=== PATIENT | female | born 1975 | race African-American/Black ===

== ENCOUNTER 2018-03-13 00:59 | Emergency (ER) | payer SELFPAY ==
[~2018-03-13] VITALS: Ht 175.3 cm; Wt 81.6 kg
[2018-03-13 01:05] VITALS: BP 0/0
--- NOTE | 2018-03-13 01:09 | Emergency Room Report ---
History of Present Illness General Chief Complaint: Substance Abuse Source: Patient, EMS Present Illness HPI Is a 42-year-old female who is brought in by EMS with chief complaint of methamphetamine overdose. She was acting bizarrely at so bystander called 911. On arrival patient is combative but follow commands. She admits to using methamphetamine. Did not pass out. No injury. She does not want to be here. Does not want to be seen even though initially she agreed to it. Denies suicidal thoughts or homicidal thought. Allergies: Coded Allergies: No Known Allergies (Unverified , 03/13/18) Patient History Past Medical History: see triage record, old chart reviewed Past Surgical History: none Pertinent Family History: none Social History: Reports: drug use - amphetamine Last Menstrual Period: ukn Now: No Immunizations: other Reviewed Nursing Documentation: PMH: Agreed; PSxH: Agreed Nursing Documentation-PMH Past Medical History: No Stated History Review of Systems Eye: Denies: eye pain, blurred vision ENT: Denies: ear pain, nose congestion, throat swelling Respiratory: Denies: cough, shortness of breath Cardiovascular: Denies: chest pain, palpitations Gastrointestinal: Denies: abdominal pain, diarrhea, nausea, vomiting Musculoskeletal: Denies: back pain, joint pain Skin: Denies: rash Neurological: Denies: headache, numbness Endocrine: Denies: increased thirst, increased urine Hematologic/Lymphatic: Denies: easy bruising All Other Systems: negative except mentioned in HPI Physical Exam Vital Signs Date Time Temp Pulse Resp B/P (MAP) Pulse Ox O2 Delivery O2 Flow Rate FiO2 03/13/18 00:59 0 0 0/0 0 patient refused vitals General Appearance: no apparent distress, alert Eyes: bilateral eye PERRL ENT: normal pharynx, normal voice Neck: normal inspection, supple Respiratory: no respiratory distress Cardiovascular #1: no edema, no JVD Gastrointestinal: non tender Musculoskeletal: back normal, gait/station normal Neurologic: alert, oriented x3 Skin: normal inspection Medical Decision Making Diagnostic Impression: Primary Impression: Substance abuse ER Course She presents with substance abuse. She's not suicidal or homicidal. She is competent to refuse treatment. No psychosis. This patient is a chronic risk of self injury due to poor impulse control, limited coping skills, and judgment intermittently impaired by intoxication. I believe that the available clinical evidence to suggest that these characteristics derived primarily from personality disorder and are likely very stable over time. Hospitalization would likely attenuate risk of self-harm only during long-term period, without lasting risk reduction. Serious self-harm , while possible, would likely be inadvertent, and because of impulsivity, and foreseeable. For these reasons, I do not believe hospitalization would provide meaningful reduction in risk of self-harm. Last Vital Signs Date Time Temp Pulse Resp B/P (MAP) Pulse Ox O2 Delivery O2 Flow Rate FiO2 03/13/18 00:59 0 0 0/0 0 Status: unchanged Disposition: AGAINST MEDICAL ADVICE Condition: Stable RANJANA MADRID M.D. Mar 13, 2018 01:09
== END 2018-03-13 01:05 | disposition left against medical advice (07) ==
LOC: EDBD 00:59 → EMR 01:05
DX: F15.10 Other stimulant abuse, uncomplicated (principal)
CPT/HCPCS: 99283